=== PATIENT | female | born 1990 | race Caucasian/White ===

== ENCOUNTER 2020-03-06 13:23 | Inpatient (IN) | payer OTHER, SELFPAY ==
[2020-03-06 15:11] VITALS: BMI 49.8
[2020-03-06] MEDS ORDERED: Ondansetron PF 4 MG/2 ML Vial IVP PRN (15:59)
[2020-03-06] MEDS ORDERED: HYDROcodone/Acetaminophen 5/325 mg Tablet PO PRN ×2 (15:59)
[2020-03-06] MEDS ORDERED: Ondansetron ODT 4 MG TAB PO PRN (15:59)
[2020-03-06] MEDS ORDERED: Acetaminophen 325 MG TAB PO PRN (15:59)
[2020-03-06] MEDS ORDERED: Albuterol 200 PUFF (6.7GM INHALER) INH PRN (16:20)
--- NOTE | 2020-03-06 19:09 | PDOC.HHP ---
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 The patient was sent home from work because she had a fairly rapid onset of shortness of breath and fever approximately 10 to 11 days ago. Since that time she has had nausea fatigue, weakness, shortness of breath and some cough. She has had no specific vomiting. She did see her primary care provider who gave her azithromycin and 5 days of steroids. Those have been completed. She reports her fianc is also been positive but has had better course of it. She presented to the emergency department and [place] today. There she was noted to be modestly hypoxic and therefore transferred here for further treatment. ED Course: In the emergency room the patient received Tylenol, Levaquin, dexamethasone, Zofran and a liter of IV fluids. Her O2 sat was apparently in the upper 80s and she was tachycardic at 110. Her chest x-ray showed some bilateral lower lobe infiltrates. Hospitalist ROS - Review of Systems Constitutional: reports: fever, chills, malaise Respiratory: reports: cough, shortness of breath Cardiovascular: denies: chest pain, palpitations Gastrointestinal: reports: nausea, diarrhea. denies: vomiting, abdominal pain, constipation All other systems reviewed; all pertinent +/- noted in HPI/Subj - Medication Medications: Active Medications Generic Name Dose Route Start Last Admin Trade Name Freq PRN Reason Stop Dose Admin Acetaminophen 650 mg 03/06/20 15:59 03/06/20 17:13 Acetaminophen 325 Mg Tab PO 650 mg Q4H PRN Administration Headache/Fever/Mild Pain (1-3) Albuterol sulfate 2 puffs as needed Nifedipine 30 mg daily Hydrochlorothiazide 25 mg daily cleft lip repair cleft lip repair cleft lip repair Hospitalist History - Past Medical History Source: patient Cardiac: reports: HTN Pulmonary: reports: asthma - Past Surgical History Past Surgical History: reports: , Other (Cleft lip repair) - Social History Smoking Status: Former smoker Alcohol: reports: None Drugs: reports: none Living Situation: With Family - Exam General Appearance: NAD, awake alert Heart: RRR, no murmur, no gallops, no rubs, normal peripheral pulses Respiratory: no wheezes, no rales (Bibasilar rales), no ronchi Gastrointestinal: soft, non-tender, non-distended, normal bowel sounds, no hepatomegaly, no splenomegaly Extremities: no cyanosis, no clubbing, no edema Skin: normal turgor Neurological: no new deficit Musculoskeletal: normal tone, normal strength, no muscle wasting Psychiatric: normal affect, normal behavior, A&O x 3, lethargic (Slightly) Hospitalist Results - Labs Lab results: C-Reactive Protein 10.06 mg/dL (= or < 0.5) H 03/06/20 16:36 WBC 5.3, hemoglobin 11.4, platelet count 230. Sodium 137, potassium 3.7, CO2 102, BUN 4, creatinine 0.72. Total bili 0.4 AST 135 ALT 89 alk phos 47. Troponin 0 0.012, BNP 10. Drug screen is negative. - Radiology Interpretation Chest x-ray Status: image reviewed by me, report reviewed by me (Diffuse interstitial prominence with some areas of slightly denser prominence in the lower halves of the lungs consistent with Covid pneumonia.) Hospitalist H&P A/P - Problem (1) Acute respiratory failure with hypoxia Code(s): J96.01 - ACUTE RESPIRATORY FAILURE WITH HYPOXIA Status: Acute (2) Pneumonia due to COVID-19 virus Code(s): U07.1 - COVID-19; J12.82 - PNEUMONIA DUE TO CORONAVIRUS DISEASE 2019 Status: Acute (3) Asthma Code(s): J45.909 - UNSPECIFIED ASTHMA, UNCOMPLICATED Status: Acute (4) Hypertension Code(s): I10 - ESSENTIAL (PRIMARY) HYPERTENSION Status: Acute (5) Morbid obesity Code(s): E66.01 - MORBID (SEVERE) OBESITY DUE TO EXCESS CALORIES Status: Acute - Plan Plan: Acute hypoxic respiratory failure: Secondary to COVID-19 pneumonia. Continue oxygen. At the time of my exam the patient's oxygen saturation at rest ranged between 92 and 95%. With a simple exertion of sitting up so I could examine her lungs caused her sats to drop into the upper 80s and cause some tachypnea. COVID-19 pneumonia: Patient is beyond the window for antiviral therapies. Continue with Decadron. Bronchodilators. Obtain inflammatory markers. Asthma: Continue bronchodilators. Hypertension: Resume her home dose of nifedipine. DVT prophylaxis: Enoxaparin. Continue standard dosing until we obtain D-dimer. PUD prophylaxis: Because she will be on the steroids will use PPI.
[2020-03-07 07:54] LABS: Anion Gap 14 mmol/L (10-20); BUN (Urea Nitrogen) 7 mg/dL (7.0-18.7); Calc. Creatinine Clearance 287 mL/min (70-130); Calcium 8.1 mg/dL (7.8-10.44); Carbon Dioxide 23 mmol/L (22-29); Chloride 106 mmol/L (98-107); Glucose 117 mg/dL (70-105); Potassium 4.2 mmol/L (3.5-5.1); Sodium 139 mmol/L (136-145)
[2020-03-07] MEDS ORDERED: Enoxaparin Sodium 40 MG/0.4 ML SYRINGE SC SCH (09:00)
[2020-03-07] MEDS ORDERED: Benzonatate 100 MG CAP PO SCH (09:00)
[2020-03-07] MEDS ORDERED: Dexamethasone 6 MG in Sodium Chloride 0.9% 50 ML IVPB SCH (09:00)
[2020-03-07 10:56] LABS: Hemoglobin 10.7 g/dL (12.0-16.0); Mean Corpuscular HGB CONC 30.7 g/dL (32.0-36.0); Mean Corpuscular Hemoglobin 22.1 pg (27.0-31.0); Mean Corpuscular Volume 72.1 fL (78.0-98.0); Platelet Count 261 thou/uL (130-400); RBC Distribution Width 14.4 % (11.5-14.5); Red Blood Cell (RBC) Count 4.86 mill/uL (4.20-5.40); White Blood Cell (WBC) Count 2.9 thou/uL (4.8-10.8)
[2020-03-07 11:26] LABS: #Lymphocytes 0.6 thou/uL (1.20-3.40); #Monocytes 0.4 thou/uL (0.11-0.59); #Neutrophils 1.9 thou/uL (1.40-6.50); %Basophils 1.5 % (0.0-1.0); %Eosinophils 0.2 % (0.0-10.0); %Lymphocytes 20.8 % (21.0-51.0); %Monocytes 13.7 % (0.0-10.0); %Neutrophils 63.8 % (42.0-75.0); Band 1 % (5-11); Lymphocytes 17 % (21-51); MDiff Complete? YES; Microcytosis SLIGHT = 6-15 cells (100X) (0-5/hpf); Monocytes 13 % (0-10); Neutrophil 69 % (42-75); Platelet Morphology Comment Appears Adequate
--- NOTE | 2020-03-07 14:11 | PDOC.HOSPP ---
- Subjective Encounter Date: 03/07/20 Encounter Time: 10:30 Subjective: sob is better, no new complaints ambulates in the room - Objective Vital Signs & Weight: Vital Signs (12 hours) Temp Pulse Resp BP Pulse Ox 03/07/20 08:45 94 L 03/07/20 07:38 97.7 F 78 20 121/84 94 L 03/07/20 05:13 97.6 F 69 16 139/81 100 Weight Weight 290 lb Result Diagrams: 03/07/20 06:49 03/07/20 06:49 Hospitalist ROS - Medication Medications: Active Medications Generic Name Dose Route Start Last Admin Trade Name Freq PRN Reason Stop Dose Admin Acetaminophen 650 mg 03/06/20 15:59 03/06/20 17:13 Acetaminophen 325 Mg Tab PO 650 mg Q4H PRN Administration Headache/Fever/Mild Pain (1-3) Benzonatate 100 mg 03/07/20 09:00 03/07/20 08:34 Benzonatate 100 Mg Cap PO 100 mg BID TONYA Administration Enoxaparin Sodium 40 mg 03/07/20 09:00 03/07/20 08:34 Enoxaparin Sodium 40 Mg/0.4 Ml Syringe SC 40 mg 0900 TONYA Administration Dexamethasone 6 mg/ Sodium 50.6 mls @ 100 mls/hr 03/07/20 09:00 03/07/20 08:34 Chloride IVPB 50.6 mls DAILY TONYA Administration Pantoprazole Sodium 40 mg 03/07/20 09:00 03/07/20 08:34 Pantoprazole 40 Mg Tab PO 40 mg DAILY TONYA Administration - Exam General Appearance: awake alert Eye: PERRL, anicteric sclera ENT: no oropharyngeal lesions, moist mucosa Neck: supple, no JVD Heart: RRR, no murmur Respiratory: no wheezes, rales, rhonchi Gastrointestinal: soft, non-tender, non-distended, normal bowel sounds Extremities: no cyanosis, no edema Neurological: cranial nerve grossly intact, no focal deficits Psychiatric: normal affect, A&O x 3 Hosp A/P (1) Pneumonia due to COVID-19 virus Code(s): U07.1 - COVID-19; J12.82 - PNEUMONIA DUE TO CORONAVIRUS DISEASE 2019 Status: Acute (2) Acute respiratory failure with hypoxia Code(s): J96.01 - ACUTE RESPIRATORY FAILURE WITH HYPOXIA Status: Acute (3) Asthma Code(s): J45.909 - UNSPECIFIED ASTHMA, UNCOMPLICATED Status: Chronic Qualifiers: Asthma severity: mild Asthma persistence: intermittent Asthma complication type: uncomplicated Qualified Code(s): J45.20 - Mild intermittent asthma, uncomplicated (4) Hypertension Code(s): I10 - ESSENTIAL (PRIMARY) HYPERTENSION Status: Chronic Qualifiers: Hypertension type: essential hypertension Qualified Code(s): I10 - Essential (primary) hypertension (5) Morbid obesity Code(s): E66.01 - MORBID (SEVERE) OBESITY DUE TO EXCESS CALORIES Status: Chronic - Plan inflammatory markers are slowly trending down, will need home O2 for dc plan was not a candidate for remdesivir due to duration of illness on arrival (11 days) is on nasal canula O2, dexamethasone, lovenox dvt prophylaxis and protonix counselled to stay active in the room and wear nasal canula if she ambulates strictly will check crp in am if its trending down, then dc home on home O2 and steroids encourage po fluid and solid food intake
[2020-03-07 17:36] VITALS: BP 133/78; TEMP 98
[2020-03-07] MEDS ORDERED: Mometasone 100 MCG/Formoterol 5 MCG 120 PUFF INHALER INH SCH (18:30)
--- NOTE | 2020-03-08 16:43 | DIS ---
DATE OF ADMISSION: 03/06/2020 DATE OF DISCHARGE: 03/07/2020 DISCHARGE DISPOSITION: The patient signed out against medical advice. PRIMARY DISCHARGE DIAGNOSES: COVID-19 pneumonia, acute respiratory failure with hypoxia, chronic anemia, morbid obesity, history of mild intermittent asthma, hypertension. PROCEDURES DONE DURING HOSPITALIZATION: Chest x-ray done on the day of admission showed diffuse interstitial prominence with areas of slightly denser areas in the lower half of the lungs suspicious for COVID. Blood cultures x2, no growth. H and H of 10 and 35, platelet count 261, white count 2.9 with 63% neutrophils. Urine drug screen is negative. Urine test was negative. BRIEF COURSE DURING HOSPITALIZATION: The patient initially got admitted on the with complaints of shortness of breath. 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 Since then, the patient has had some fatigue, nausea, weakness, shortness of breath, and mild cough. This has been progressively getting worse. She in fact took a full course of azithromycin and 5 days of steroids prior to arrival. Her fiance was positive for COVID as well. She was placed on 2 L nasal cannula and admitted to medical floor. The patient was 11 days into her illness and was not a candidate for remdesivir. Her CRP was 10.0. Ferritin was 87.26. The patient was advised to stay for another day for a repeat CRP to see the trend of her inflammatory markers prior to discharge on home oxygen, but the patient refused to stay. She had 3 small children at home and her was very sick as well and she had to leave against medical advice. The patient has multiple risk factors for worsening including a BMI of 49.8. Despite multiple counseling, the patient decided to go against medical advice. Please see a [id number] documentation for the day of discharge on [employer]. Job ID: [id number]
== END 2020-03-07 20:03 | disposition left against medical advice (07) | DRG 177 ==
LOC: T4-A 15:04
PROVIDERS: ADMIT Internal Medicine; ATTEND Internal Medicine
DX: U07.1 COVID-19 (principal); J96.01 Acute respiratory failure with hypoxia; J12.82 Pneumonia due to coronavirus disease 2019; Z68.42 Body mass index [BMI] 45.0-49.9, adult; I10 Essential (primary) hypertension; D64.9 Anemia, unspecified; E66.01 Morbid (severe) obesity due to excess calories; J45.20 Mild intermittent asthma, uncomplicated; Z87.891 Personal history of nicotine dependence; Z79.899 Other long term (current) drug therapy
CPT/HCPCS: 36415; 80048; 82728; 85025; 85379; 86140; J1100; J1650

== ENCOUNTER 2020-03-08 18:47 | Observation (INO) | payer OTHER, SELFPAY ==
[~2020-03-08 18:47] MED LIST: Iopamidol-370 76% 500 ML 1 ML ONE
[2020-03-08 19:32] LABS: #Lymphocytes 1.8 thou/uL (1.20-3.40); #Monocytes 0.7 thou/uL (0.11-0.59); #Neutrophils 6.9 thou/uL (1.40-6.50); %Basophils 0.4 % (0.0-1.0); %Eosinophils 0.1 % (0.0-10.0); %Monocytes 7.3 % (0.0-10.0); %Neutrophils 73.2 % (42.0-75.0); Hemoglobin 10.9 g/dL (12.0-16.0); Mean Corpuscular HGB CONC 32.2 g/dL (32.0-36.0); Mean Corpuscular Hemoglobin 23.3 pg (27.0-31.0); Mean Corpuscular Volume 72.2 fL (78.0-98.0); Mean Platelet Volume 7.9 fL (7.4-10.4); Platelet Count 321 thou/uL (130-400); RBC Distribution Width 14.3 % (11.5-14.5); Red Blood Cell (RBC) Count 4.69 mill/uL (4.20-5.40); White Blood Cell (WBC) Count 9.4 thou/uL (4.8-10.8)
[2020-03-08 19:49] LABS: BHCG - Serum Negative (NEGATIVE); Pregs Control Background? CLEAR/WHITE (CLR/WHITE); Pregs Control Bar Appear? YES (CONTROL BAR)
[2020-03-08] MEDS ORDERED: Dexamethasone 10 MG/ML VIAL ONE (19:50)
[2020-03-08] MEDS ORDERED: Albuterol Sulfate 1.25 MG/3 ML NEB ONE (19:50)
[2020-03-08 19:54] LABS: ALT (SGPT) 80 U/L (8-55); AST (SGOT) 81 U/L (5-34); Albumin 3.5 g/dL (3.5-5.0); Alkaline Phosphatase 42 U/L (40-110); Anion Gap 17 mmol/L (10-20); BUN (Urea Nitrogen) 7 mg/dL (7.0-18.7); Bilirubin, Total 0.3 mg/dL (0.2-1.2); Calc. Creatinine Clearance 0 mL/min (70-130); Calcium 7.7 mg/dL (7.8-10.44); Carbon Dioxide 23 mmol/L (22-29); Chloride 102 mmol/L (98-107); Globulin 3.7 g/dL (2.4-3.5); Glucose 113 mg/dL (70-105); Protein, Total 7.2 g/dL (6.0-8.3); Sodium 138 mmol/L (136-145)
[2020-03-08] MEDS ORDERED: Guaifenesin DM 100-10/5 ML UDCUP PO PRN (21:50)
[2020-03-08] MEDS ORDERED: Acetaminophen 650 MG Suppository PR PRN (21:50)
[2020-03-08] MEDS ORDERED: Acetaminophen 325 MG TAB PO PRN (21:50)
[2020-03-08] MEDS ORDERED: Calcium Carbonate 500 MG ChewTAB PO PRN (21:50)
[2020-03-08] MEDS: Sodium Chloride 0.9% 1,000 ML IV SCH (23:42)
[2020-03-08 23:57] VITALS: BMI 51.5
[2020-03-09 07:21] LABS: Hemoglobin 10.2 g/dL (12.0-16.0); Mean Corpuscular HGB CONC 31.6 g/dL (32.0-36.0); Mean Corpuscular Hemoglobin 23.3 pg (27.0-31.0); Mean Corpuscular Volume 73.8 fL (78.0-98.0); Mean Platelet Volume 7.8 fL (7.4-10.4); Platelet Count 302 thou/uL (130-400); RBC Distribution Width 14.4 % (11.5-14.5); Red Blood Cell (RBC) Count 4.38 mill/uL (4.20-5.40); White Blood Cell (WBC) Count 4.4 thou/uL (4.8-10.8)
[2020-03-09 07:35] LABS: ALT (SGPT) 76 U/L (8-55); AST (SGOT) 50 U/L (5-34); Albumin 3.5 g/dL (3.5-5.0); Alkaline Phosphatase 44 U/L (40-110); Anion Gap 15 mmol/L (10-20); BUN (Urea Nitrogen) 7 mg/dL (7.0-18.7); Bilirubin, Total 0.6 mg/dL (0.2-1.2); Calc. Creatinine Clearance 255 mL/min (70-130); Carbon Dioxide 25 mmol/L (22-29); Chloride 105 mmol/L (98-107); Globulin 3.5 g/dL (2.4-3.5); Glucose 139 mg/dL (70-105); Potassium 4.6 mmol/L (3.5-5.1); Sodium 140 mmol/L (136-145)
[2020-03-09] MEDS: Sodium Chloride 0.9% 1,000 ML IV SCH (08:57)
[2020-03-09] MEDS ORDERED: Cholecalciferol (Vitamin D3) 400 UNITS TAB PO SCH (09:00)
[2020-03-09] MEDS ORDERED: NIFEdipine XL 30 MG TAB PO SCH (09:00)
[2020-03-09] MEDS ORDERED: Hydrochlorothiazide 25 MG TAB PO SCH (09:00)
[2020-03-09] MEDS ORDERED: Ascorbic Acid 500 mg Chewable Tablet PO SCH (09:00)
[2020-03-09] MEDS ORDERED: Dexamethasone 4 mg/ml Vial SLOW IVP SCH (09:00)
[2020-03-09] MEDS ORDERED: Enoxaparin Sodium 40 MG/0.4 ML SYRINGE SC SCH (09:00)
[2020-03-09] MEDS ORDERED: Zinc Sulfate 220 MG CAP PO SCH (09:00)
[2020-03-09 11:01] LABS: Band 5 % (5-11); Eosinophils 3 % (0-10); Hypochromia SLIGHT = 6-15 cells (100X) (0-5/hpf); Lymphocytes 13 % (21-51); MDiff Complete? YES; Microcytosis SLIGHT = 6-15 cells (100X) (0-5/hpf); Monocytes 6 % (0-10); Neutrophil 73 % (42-75); Platelet Morphology Comment Appears Adequate; Polychromasia SLIGHT = 2-3 cells (100X) (0-2/hpf)
[2020-03-09 16:32] VITALS: BP 142/91; TEMP 97.9
[2020-03-14] MEDS ORDERED: FLU VACC QS2020-21(6MOS UP)/PF 60 MCG/0.5 ML SYRINGE IM ONE (09:00)
== END 2020-03-09 17:49 | disposition home or self-care (01) ==
LOC: ERS 18:47 → T4-B 21:26
PROVIDERS: ADMIT Internal Medicine; ATTEND Emergency Medicine
DX: U07.1 COVID-19 (principal); J12.82 Pneumonia due to coronavirus disease 2019; J96.01 Acute respiratory failure with hypoxia; I10 Essential (primary) hypertension; J45.20 Mild intermittent asthma, uncomplicated; I45.10 Unspecified right bundle-branch block; E66.01 Morbid (severe) obesity due to excess calories; Z68.43 Body mass index [BMI] 50.0-59.9, adult; Z87.891 Personal history of nicotine dependence; Z79.899 Other long term (current) drug therapy; Z88.0 Allergy status to penicillin
CPT/HCPCS: 36415; 71275; 80053; 84484; 84703; 85007; 85025; 85027; 86140; 93005; 96374; 96376; G0378; J1100; Q9967